=== PATIENT | male | born 2000 | race Two or more races ===

== ENCOUNTER 2021-03-19 07:52 | Emergency (ER) | payer OTHER ==
[~2021-03-19] VITALS: Ht 170.2 cm; Wt 77.0 kg
[2021-03-19 07:56] VITALS: BP 139/76
[2021-03-19] MEDS ORDERED: DIPH,PERTUSS(ACELL),TET VAC/PF 0.5 ML IM-VACC ONE ×2 (08:30→08:32)
[2021-03-19] MEDS ORDERED: LIDOCAINE-MPF 1%, 5ML INFIL ONE (08:30)
[2021-03-19] MEDS ORDERED: LIDOCAINE-MPF 2% ,5ML ONE (08:33)
== END 2021-03-19 09:34 | disposition home or self-care (01) ==
LOC: ED 08:33
DX: S51.812A Laceration without foreign body of left forearm, initial encounter (principal); W26.0XXA Contact with knife, initial encounter; Y93.89 Activity, other specified; Y92.69 Other specified industrial and construction area as the place of occurrence of the external cause; Y99.0 Civilian activity done for income or pay
CPT/HCPCS: 12001; 90471; 90715; 99283